=== PATIENT | female | born 1965 | race Caucasian/White ===

== ENCOUNTER → 2024-09-30 10:30 | Outpatient (BNVA) | payer SELFPAY | PROVIDERS: Visit Provider Family Medicine | DX: E55.9 Vitamin D deficiency, unspecified (principal); R30.0 Dysuria; G62.9 Polyneuropathy, unspecified | CPT/HCPCS: 80053; 81000; 82306; 82607; 85025 ==

== ENCOUNTER → 2025-03-02 17:00 | Outpatient (BNVA) | payer OTHER, SELFPAY | PROVIDERS: Visit Provider Psychiatry & Neurology Psychiatry | DX: F41.1 Generalized anxiety disorder (principal); F60.3 Borderline personality disorder; F33.2 Major depressive disorder, recurrent severe without psychotic features | CPT/HCPCS: 80061; 83036 ==

== ENCOUNTER → 2025-06-18 16:17 | Outpatient (BNVA) | payer BC, MEDICAID, SELFPAY ==
[2025-03-03 14:10] VITALS: BP 138/84; BMI 32.0
== END ==
PROVIDERS: Visit Provider Nurse Practitioner Psychiatric/Mental Health
DX: Z79.899 Other long term (current) drug therapy (principal)
CPT/HCPCS: 80307

== ENCOUNTER → 2025-07-06 16:09 | Outpatient (BNVA) | payer MEDICAID, SELFPAY ==
[2025-03-03 14:10] VITALS: BP 138/84; BMI 32.0
== END ==
PROVIDERS: Visit Provider Nurse Practitioner Psychiatric/Mental Health
DX: Z79.899 Other long term (current) drug therapy (principal)
CPT/HCPCS: 80307; 82306; 82607

== ENCOUNTER 2025-10-13 10:07 | Outpatient (CLI) | payer MEDICAID, SELFPAY ==
[2025-03-03 14:10] VITALS: BP 138/84; BMI 32.0
--- NOTE | 2025-10-13 16:00 | MM_ITS ---
WS: [id number] BILATERAL 3D TOMOSYNTHESIS DIGITAL SCREENING MAMMOGRAPHY WITH CAD CLINICAL INFORMATION: SCREENING HISTORY: Screening mammogram. No current complaints. COMPARISON: 2020 TECHNIQUE: Bilateral CC and MLO views. FINDINGS: Scattered fibroglandular densities bilaterally. No suspicious focal mass, asymmetry, calcifications, or architectural distortion. No evidence of malignancy. Incidental punctate calcifications. MM/MM [facility] tomosynthesis [id number] IMPRESSION: DENSITY: There are scattered areas of fibroglandular density. BI-RADS: 2 - Benign. FOLLOW UP: 1 Year Follow-up Recommend return to annual screening mammography.
== END 2025-10-13 10:08 | disposition home or self-care (01) ==
LOC: MOBLMAM 10:13
PROVIDERS: PCP Nurse Practitioner; Visit Provider Nurse Practitioner Family
DX: Z12.31 Encounter for screening mammogram for malignant neoplasm of breast (principal); R92.323 Mammographic fibroglandular density, bilateral breasts; R92.1 Mammographic calcification found on diagnostic imaging of breast
CPT/HCPCS: 77063; 77067